=== PATIENT | female | born 1970 | race Caucasian/White ===

== ENCOUNTER → 2017-12-26 13:11 | Emergency (ER) | payer BC, OTHER ==
--- NOTE | 2017-12-26 14:44 | RAD ---
HISTORY: Swelling of the angle of the left jaw COMPARISONS: None TECHNIQUE: Multiple contiguous axial CT scans were obtained of the neck without intravenous contrast, with coronal and sagittal multiplanar reformations. FINDINGS: The study is limited by the lack of intravenous contrast. This limits evaluation of the solid organs and vasculature. BRAIN AND ORBITS: The visualized brain and orbits are normal. PARANASAL SINUSES: There is near-fluid level within the right maxillary sinus. SALIVARY GLANDS: The parotid glands are prominent but symmetric. There is no appreciable sialolithiasis or salivary ductal dilatation. The semitubular and sublingual glands are unremarkable for technique. There is mild stranding of the saphenous fat inferior to the left carotid gland. NASAL CAVITY/NASOPHARYNX: The nasal cavity and nasopharynx are normal. ORAL CAVITY/OROPHARYNX: The oral cavity and oropharynx are unremarkable. LARYNGEAL APPARATUS/HYPOPHARYNX: The laryngeal apparatus and hypopharynx are normal. UPPER AIRWAY/UPPER ESOPHAGUS: The visualized upper airway and esophagus are normal. LUNG APICES: The lung apices are clear. THYROID GLAND: The thyroid gland is normal. LYMPH NODES: There is no lymphadenopathy by size criteria. VASCULATURE: The vasculature is unremarkable. BONES AND SOFT TISSUES: No bone or soft tissue abnormalities are noted. OTHER: None. IMPRESSION: 1. MODERATE SINUS MUCOSAL INFLAMMATORY DISEASE, WITH AN AIR-FLUID LEVEL IN THE RIGHT MAXILLARY SINUS. IN THE CORRECT CLINICAL SETTING, THIS MAY REPRESENT ACUTE SINUSITIS. 2. THERE IS MILD INFLAMMATORY CHANGE INFERIOR TO THE LEFT PAROTID GLAND WHICH MAY INDICATE PAROTITIS IN THE CORRECT CLINICAL SETTING. THERE IS NO APPRECIABLE SIALOLITHIASIS OR SALIVARY DUCTAL DILATATION. 3. NO SOFT TISSUE MASS TO CORRESPOND TO THE HISTORY OF PALPABLE ABNORMALITY OF THE ANKLE OF THE MANDIBLE. NO LYMPHADENOPATHY BY SIZE CRITERIA. A NEGATIVE REPORT SHOULD NOT PRECLUDE OR DELAY THE EVALUATION OF A CLINICALLY SUSPICIOUS PALPABLE ABNORMALITY
--- NOTE | 2017-12-26 15:17 | ED ---
Siddhartha Sen Jennifer, scribed for Seb Orellana MD on 12/26/17 at 1344 . Throat Pain/Nasal Congestion - HPI Summary HPI Summary: The patient is a 47 y/o F who presents with left ear swelling and soreness that began at 12:30 today. The patient states she was eating when she heard a crackle in her left ear. She complains that it hurts to chew, its tender to touch, the back of her left tongue hurts, and her throat hurts. She states it felt like a muscle spasm. The patient denies dental pain and hotness. She adds that she has had a head cold and her ears have felt full for the past week. - History of Current Complaint Chief Complaint: EDGeneral Time Seen by Provider: 12/26/17 13:33 Hx Obtained From: Patient Onset/Duration: Sudden Onset, Lasting Hours - about one hour ago, Still Present Severity: Mild Cough: None - Allergies/Home Medications Allergies/Adverse Reactions: Allergies Allergy/AdvReac Type Severity Reaction Status Date / Time acetaminophen [From Vicodin] Allergy See Comment Verified 12/26/17 13:17 hydrocodone [From Vicodin] Allergy See Comment Verified 12/26/17 13:17 morphine Allergy Rash Verified 12/26/17 13:17 Penicillins Allergy Rash Verified 12/26/17 13:17 Home Medications: Home Medications ALPRAZolam TAB* [Xanax TAB*] 0.25 mg PO TID PRN 12/26/17 [History Confirmed ] Cetirizine* [ZyrTEC 10 MG TAB*] 10 mg PO DAILY 12/26/17 [History Confirmed 12/26] DULoxetine CAP* [Cymbalta CAP*] 60 mg PO BID 12/26/17 [History Confirmed ] Esomeprazole(NF) [NEXium(NF)] 20 mg PO DAILY 12/26/17 [History Confirmed ] Estradiol/Levonorgestrel [Climara Pro Patch] 1 patch TRANSDERM WEEKLY 12/26/17 [ History Confirmed 12/26/17] Exenatide VIAL (NF) [Bydureon (NF)] 2 mg SUBCUT WEEKLY 12/26/17 [History Confirmed 12/26/17] Flaxseed Oil [Flaxseed Oil] 2,400 mg PO DAILY 12/26/17 [History Confirmed ] PMH/Surg Hx/FS Hx/Imm Hx Endocrine/Hematology History: Reports: Hx Diabetes - TYPE II ON ORAL MEDICATION FOR Denies: Hx Bone Marrow Disease, Hx Sickle Cell Disease, Hx Anemia GI History: Reports: Hx Gastroesophageal Reflux Disease, Hx Hiatal Hernia Comment Only: Other GI Disorders - HIATAL HERNIA History: Denies: Hx Renal Disease Sensory History: Denies: Hx Contacts or Glasses, Hx Hearing Aid Opthamlomology History: Denies: Hx Contacts or Glasses Psychiatric History: Reports: Hx Anxiety - ON MEDICATION FOR, Hx Depression - ON MEDICATION FOR - Surgical History Surgery Procedure, Year, and Place: 1986 C SECTION [facility]. 1990 BTL [facility]. 1999 HYSTERECTOMY [facility]. 2001 L CARPAL TUNNEL [facility] [place]. 2003 LJ [facility] [place]. 2011 BICEP L ARM REPAIR [facility] [place] Hx Anesthesia Reactions: No Infectious Disease History: No Infectious Disease History: Denies: Traveled Outside the [place] in Last 30 Days - Family History Known Family History: Negative: Renal Disease Family History: Family hx non-contributory - Social History Alcohol Use: None Substance Use Type: Reports: None Smoking Status (MU): Heavy Every Day Tobacco Smoker Amount Used/How Often: 1 PPDX 20 YEARS Review of Systems ENT: Other - hurts to chew, left side of tongue hurts, throat hurts Positive: Ear Ache - swelling and soreness of left ear. Negative: Dental Pain Negative: Abdominal Pain All Other Systems Reviewed And Are Negative: Yes Physical Exam - Summary Physical Exam Summary: General: well-appearing, no pain distress Skin: warm, color reflects adequate perfusion, dry Head: normal Eyes: EOMI, SOPHIE ENT: swelling of angle of the left jaw Neck: supple, nontender Respiratory: CTA, breath sounds present Cardiovascular: RRR Abdomen: soft, nontender Bowel: present Musculoskeletal: normal, strength/ROM intact Neurological: sensory/motor intact, A&O x3 Psychological: affect/mood appropriate Triage Information Reviewed: Yes Vital Signs On Initial Exam: Initial Vitals Temp Pulse Resp BP Pulse Ox 98.1 F 121 20 137/78 97 12/26/17 13:17 12/26/17 13:17 12/26/17 13:17 12/26/17 13:17 12/26/17 13:17 Vital Signs Reviewed: Yes Diagnostics - Vital Signs Vital Signs Temp Pulse Resp BP Pulse Ox 12/26/17 13:17 98.1 F 121 20 137/78 97 - Laboratory Lab Statement: Any lab studies that have been ordered have been reviewed, and results considered in the medical decision making process. - CT Neck CT CT Interpretation: Positive (See Comments) - 1. MODERATE SINUS MUCOSAL INFLAMMATORY DISEASE, WITH AN AIR-FLUID LEVEL IN THE RIGHT MAXILLARY SINUS. IN THE CORRECT CLINICAL SETTING, THIS MAY REPRESENT ACUTE SINUSITIS. 2. THERE IS MILD INFLAMMATORY CHANGE INFERIOR TO THE LEFT PAROTID GLAND WHICH MAY INDICATE PAROTITIS IN THE CORRECT CLINICAL SETTING. THERE IS NO APPRECIABLE SIALOLITHIASIS OR SALIVARY DUCTAL DILATATION. 3. NO SOFT TISSUE MASS TO CORRESPOND TO THE HISTORY OF PALPABLE ABNORMALITY OF THE ANKLE OF THE MANDIBLE. NO LYMPHADENOPATHY BY SIZE CRITERIA. A NEGATIVE REPORT SHOULD NOT PRECLUDE OR DELAY THE EVALUATION OF A CLINICALLY SUSPICIOUS PALPABLE ABNORMALITY. Dr. Orellana has reviewed this report. CT Interpretation Completed By: Radiologist EENT Course/Dx - Course Course Of Treatment: DISCUSSED RESULTS WITH THE PATIENT. F/U PMD; RETURN IF WORSE. - Diagnoses Provider Diagnoses: Parotitis, Sinusitis Discharge - Sign-Out/Discharge Documenting (check all that apply): Discharge/Admit/Transfer - Discharge Plan Condition: Stable Disposition: HOME Prescriptions: Levofloxacin TAB* [Levaquin TAB*] 500 mg PO DAILY #10 tab Patient Education Materials: Sialoadenitis (ED), Sinusitis (ED) Referrals: Stevie Isaac DO [Primary Care Provider] - Additional Instructions: FOLLOW UP WITH YOUR DOCTOR. RETURN TO THE EMERGENCY DEPARTMENT FOR ANY WORSENING OF YOUR CONDITION OR QUESTIONS OR CONCERNS. - Billing Disposition and Condition Condition: STABLE Disposition: HOME The documentation as recorded by the Siddhartha steward Jennifer accurately reflects the service I personally performed and the decisions made by me, Seb Orellana MD.
[2017-12-26 15:32] VITALS: BP 139/86
== END | disposition home or self-care (01) ==
LOC: ED 13:11
DX: K11.20 Sialoadenitis, unspecified (principal); J32.9 Chronic sinusitis, unspecified; E11.9 Type 2 diabetes mellitus without complications; Z79.84 Long term (current) use of oral hypoglycemic drugs; K21.9 Gastro-esophageal reflux disease without esophagitis; K44.9 Diaphragmatic hernia without obstruction or gangrene; F41.9 Anxiety disorder, unspecified; F32.9 Major depressive disorder, single episode, unspecified; Z88.6 Allergy status to analgesic agent; Z88.5 Allergy status to narcotic agent; Z88.0 Allergy status to penicillin; F17.200 Nicotine dependence, unspecified, uncomplicated
CPT/HCPCS: 70490; 99282

== ENCOUNTER 2018-11-23 21:06 | Observation (INO) | payer BC, OTHER ==
--- NOTE | 2018-11-23 21:47 | ED ---
HPI Chest Pain - HPI Summary HPI Summary: This patient is a 48 year old female presenting to [facility] with a chief complaint of constant chest pain since 2 days ago. She describes the pain as a pressure radiating to her right jaw. She also reports palpitations since 2 days ago, shortness of breath since earlier today, and nausea. She rates her pain 7/10 in severity. The patient is a smoker and has a FHx of cardiac problems. - History of Current Complaint Chief Complaint: EDChestPainROMI Time Seen by Provider: 11/23/18 21:42 Hx Obtained From: Patient Onset/Duration: Started Days Ago Timing: Constant Initial Severity: Moderate Current Severity: Moderate Pain Intensity: 7 Pain Scale Used: 0-10 Numeric Chest Pain Radiates To:: Jaw Character: Dyspnea at Rest, Pressure/Squeezing Associated Signs and Symptoms: Positive: Chest Pain - Allergy/Home Medications Allergies/Adverse Reactions: Allergies Allergy/AdvReac Type Severity Reaction Status Date / Time acetaminophen [From Vicodin] Allergy See Comment Verified 11/23/18 21:14 hydrocodone [From Vicodin] Allergy See Comment Verified 11/23/18 21:14 morphine Allergy Rash Verified 11/23/18 21:14 Penicillins Allergy Rash Verified 11/23/18 21:14 Steowmq-Zqf-Dla Reductase Allergy Pain Verified 11/23/18 21:14 Inhibitor Home Medications: Home Medications Dulaglutide [Trulicity] 0.75 mg SUBCUT WEEKLY 11/23/18 [History Confirmed ] Estradiol 0.025 MG PATCH (NF) 1 patch TRANSDERM WEEKLY 11/23/18 [History Confirmed 11/23/18] Furosemide TAB* [Lasix TAB*] 40 mg PO DAILY 11/23/18 [History Confirmed 11/23/18 ] Magnesium Oxide TAB* [MagOx 400 TAB*] 400 mg PO DAILY 11/23/18 [History Confirmed 11/23/18] Multivitamin [Multivitamins] 1 tab PO DAILY 11/23/18 [History Confirmed 11/23/18 ] Progesterone CAP (NF) [Prometrium (NF)] 200 mg PO DAILY 11/23/18 [History Confirmed 11/23/18] Ubidecarenone [Co Q-10] 200 mg PO DAILY 11/23/18 [History Confirmed 11/23/18] Vitamin B Complex [Super B-50 Complex] 1 cap PO DAILY 11/23/18 [History Confirmed 11/23/18] PMH/Surg Hx/FS Hx/Imm Hx Endocrine/Hematology History: Reports: Hx Diabetes - TYPE II ON ORAL MEDICATION FOR Denies: Hx Bone Marrow Disease, Hx Sickle Cell Disease, Hx Anemia GI History: Reports: Hx Gastroesophageal Reflux Disease, Hx Hiatal Hernia Comment Only: Other GI Disorders - HIATAL HERNIA History: Denies: Hx Renal Disease Sensory History: Denies: Hx Contacts or Glasses, Hx Hearing Aid Opthamlomology History: Denies: Hx Contacts or Glasses Psychiatric History: Reports: Hx Anxiety - ON MEDICATION FOR, Hx Depression - ON MEDICATION FOR - Surgical History Surgery Procedure, Year, and Place: 1986 C SECTION [facility]. 1990 BTL [facility]. 1999 HYSTERECTOMY [facility]. [place] [facility] [place] [facility] [place]ICEP L [place] [facility] [place] Anesthesia Reactions: No Infectious Disease History: Yes Infectious Disease History: Denies: Traveled Outside the [place] in Last 30 Days - Family History Known Family History: Positive: Cardiac Disease Negative: Renal Disease Family History: Family hx non-contributory - Social History Alcohol Use: None Substance Use Type: Reports: None Smoking Status (MU): Heavy Every Day Tobacco Smoker Amount Used/How Often: 1 PPDX 20 YEARS Review of Systems Positive: Palpitations, Chest Pain Positive: Shortness Of Breath Positive: Nausea All Other Systems Reviewed And Are Negative: Yes Physical Exam - Summary Physical Exam Summary: VITAL SIGNS: Reviewed. GENERAL: Patient is a well-developed and nourished FEMALE who is lying comfortable in the stretcher. Patient is not in any acute respiratory distress. HEAD AND FACE: No signs of trauma. No ecchymosis, hematomas or skull depressions. No sinus tenderness. EYES: PERRLA, EOMI x 2, No injected conjunctiva, no nystagmus. EARS: Hearing grossly intact. Ear canals and tympanic membranes are within normal limits. MOUTH: Oropharynx within normal limits. NECK: Supple, trachea is midline, no adenopathy, no JVD, no carotid bruit, no c- spine tenderness, neck with full ROM. CHEST: Symmetric, no tenderness at palpation LUNGS: Clear to auscultation bilaterally. No wheezing or crackles. CVS: Regular rate and rhythm, S1 and S2 present, no murmurs or gallops appreciated. ABDOMEN: Soft, non-tender. No signs of distention. No rebound no guarding, and no masses palpated. Bowel sounds are normal. EXTREMITIES: FROM in all major joints, no edema, no cyanosis or clubbing. NEURO: Alert and oriented x 3. No acute neurological deficits. Speech is normal and follows commands. SKIN: Dry and warm Triage Information Reviewed: Yes Vital Signs On Initial Exam: Initial Vitals Temp Pulse Resp BP Pulse Ox 97.8 F 103 18 164/105 98 11/23/18 21:11 11/23/18 21:11 11/23/18 21:11 11/23/18 21:11 11/23/18 21:11 Vital Signs Reviewed: Yes Diagnostics - Vital Signs Vital Signs Temp Pulse Resp BP Pulse Ox 11/23/18 21:11 97.8 F 103 18 164/105 98 - Laboratory Result Diagrams: 11/23/18 21:50 11/23/18 21:50 Lab Statement: Any lab studies that have been ordered have been reviewed, and results considered in the medical decision making process. - Radiology CXR Radiology Interpretation Completed By: ED Physician Summary of Radiographic Findings: No acute process. Pending official radiologist report. - EKG 2125 Cardiac Rate: NL EKG Rhythm: Sinus Rhythm - 94 BPM EKG Comparison: No Significant Change Summary of EKG Findings: Q-waves in inferior leads, old. No acute ischemic changes. Chest Pain Course/Dx - Course Course Of Treatment: This patient is a 48 year old female presenting to [facility] with a chief complaint of constant chest pain since 2 days ago. Labs and imaging were unremarkable for cardiopulmonary problems. Care was discussed with Dr. Martinez, hospitalist and he agreed to admit the patient to the hospital. This plan was discussed with the patient and she was agreeable with this plan. - Diagnoses Provider Diagnoses: Chest pain - Provider Notifications Discussed Care Of Patient With: Gurdeep Martinez - Hospitalist Time Discussed With Above Provider: 00:55 Instructed by Provider To: Admit As Inpatient Discharge - Sign-Out/Discharge Documenting (check all that apply): Patient Departure - Admission - Discharge Plan Condition: Stable Disposition: ADMITTED TO [facility] Referrals: Stevie Isaac DO [Primary Care Provider] - - Attestation Statements Document Initiated by Scribe: Yes Documenting Scribe: Gurdeep Martin Provider For Whom Scribe is Documenting (Include Credential): Sheila Bustillos MD Scribe Attestation: Gurdeep Sen, scribed for Sheila Bustillos MD on 11/24/18 at 0103. Status of Scribe Document: Ready
[2018-11-23] MEDS ORDERED: Aspirin 81 mg CHEW TAB* 81 MG TAB.CHEW PO ONE (21:56)
[2018-11-23] MEDS ORDERED: fentaNYL* 50 MCG/ML 2 ML VIAL (100 MCG VIAL) IV SLOW PU ONE (21:57)
[2018-11-23] MEDS ORDERED: Ondansetron INJ* 2 MG/ML VIAL IV ONE (21:57)
[2018-11-23 21:58] LABS: ABS Basophils 0.1 10^3/ul (0-0.2); ABS Eosinophils 0.3 10^3/ul (0-0.6); ABS Lymphocytes 3.9 10^3/ul (1.0-4.8); ABS Monocytes 0.6 10^3/ul (0-0.8); ABS Neutrophils 4.9 10^3/ul (1.5-7.7); ABS Nucleated RBC 0 10^3/ul; Eosinophil % 3.3 %; Hematocrit 42 % (33-41); Hemoglobin 14.1 g/dL (12.0-16.0); Lymphocyte % 39.6 %; Mean Corpuscular HGB Conc 34 g/dL (31-36); Mean Corpuscular Hemoglobin 30 pg (27-31); Mean Corpuscular Volume 88 fL (80-97); Mean Platelet Volume 7.8 fL (7.4-10.4); Nucleated Red Blood Cells % 0.1; Platelet Count 335 10^3/uL (150-450); Red Blood Count 4.74 10^6 /uL (3.70-4.87); Red Cell Distribution Width 13 % (10.5-15); White Blood Count 9.8 10^3/uL (3.5-10.8)
[2018-11-23 22:20] LABS: Albumin 3.9 g/dL (3.2-5.2); Albumin/Globulin Ratio 1.5 (1-3); BUN/Creatinine Ratio 12.5 (8-20); Calcium 9.4 mg/dL (8.6-10.3); EGFR African American 91.9 (>60); EGFR Non-African American 75.9 (>60); Globulin 2.6 g/dL (2-4); Total Bilirubin 0.2 mg/dL (0.2-1.0); Total Protein 6.5 g/dL (6.4-8.9)
[2018-11-23 22:23] LABS: Troponin I 0.01 ng/mL (<0.04)
[2018-11-23 22:30] LABS: Activated Partial Thrombo Time 30.9 seconds (26.0-36.3); INR 0.83 (0.77-1.02)
[2018-11-23 22:35] LABS: Potassium 3.7 mmol/L (3.5-5.0)
[2018-11-24] MEDS ORDERED: Nitroglycerin TAB 0.4 MG* 0.4 MG TAB SL ONE (02:40)
[2018-11-24] MEDS ORDERED: Cetirizine* 10 MG TAB PO PRN (02:42)
[2018-11-24] MEDS ORDERED: ALPRAZolam TAB* 0.25 MG PO PRN (02:42)
[2018-11-24] MEDS ORDERED: Ondansetron INJ* 2 MG/ML VIAL IV PRN (02:43)
[2018-11-24 02:59] LABS: C Reactive Protein 3.15 mg/L (<8.01)
[2018-11-24] MEDS ORDERED: ESTRADIOL 0.025 MG TRANSDERM SCH (03:00)
[2018-11-24] MEDS ORDERED: NFT: Dulaglutide (NF) 0.75 MG/0.5 ML SYRINGE SUBCUT SCH (03:00)
[2018-11-24] MEDS ORDERED: Enoxaparin(*) 40 MG/0.4 ML SYR SUBCUT SCH (03:00)
[2018-11-24 03:48] LABS: Erythrocyte Sed Rate 9 mm/Hr (0-29)
[2018-11-24] MEDS ORDERED: Ibuprofen TAB* 800 MG PO SCH (04:00)
--- NOTE | 2018-11-24 05:40 | PN ---
Progress Note - Progress Note Date of Service: 11/24/18 Note: Addendum to H&P Experienced relief from nitro SL ESR/CRP not elevated and motrin discontinued
--- NOTE | 2018-11-24 08:08 | HP ---
CC: Dr. Isaac * ADMISSION HISTORY AND PHYSICAL: DATE OF ADMISSION: 11/24/18 PRIMARY CARE PROVIDER: Dr. Isaac. HEALTHCARE PROXY: Her daughter and her . CODE STATUS: Full. SOURCE OF INFORMATION: History obtained from interview with the patient and review of past medical records. RELIABILITY: Good. CHIEF COMPLAINT: Chest pain. HISTORY OF PRESENT ILLNESS: This is a 48-year-old female with past medical history of panic disorder, polyneuropathy, remote history of chest pain, status post cath 7 years prior, thought potentially to be spasm per the patient report , who developed chest pain approximately 2 days prior to presentation of left upper sternum described as chest pressure that was constant, with worsening that occurred the day prior to presentation with radiation to the right jaw, associated with nausea and shortness of breath, the shortness of breath described as if she had just been walking up a flight of stairs, for which she presented to the emergency room. In the emergency room, she did experience one episode of lightheadedness after walking to the bathroom. This chest pressure feels similar to that she experiences when she has had a panic attack; however, panic attacks typically last for only an hour and relieve with Xanax and this has been persistent for the last 48 hours with worsening as described above. She had tried Xanax and has been taking it 3 times a day, whereas typically she takes it p.r.n. 1 time a day if needed, with no relief. 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 She has noticed no relief with anything that she has taken except during her ER stay she did receive Zofran and fentanyl. Afterwards, she fell asleep, but had some chest discomfort which is now returning. She notes that she has had sinus congestion that occurred approximately 2 weeks prior after contact with her [id number] who was also sick. There has been no change in her home medications. No fevers , chills, night sweats, diarrhea, GI or symptoms. PAST MEDICAL HISTORY: Includes GERD, hiatal hernia, chronic lower back pain that is currently resolved, depression, type 2 diabetes, polyneuropathy. She had a left shoulder surgery of her labrum, biceps surgery, carpal tunnel release on her left twice, and panic attacks as indicated above. HOME MEDICATIONS: From the patient's list: 1. Vitamin B complex 1 cap daily. 2. Progesterone 200 mg daily. 3. Estradiol 0.025 patch weekly. 4. Cetirizine 10 mg daily as needed. 5. Trulicity 0.75 mg weekly on Mondays. 6. Multivitamin 1 tab daily. 7. Furosemide 40 mg daily. 8. Magnesium oxide 400 mg daily. 9. Duloxetine 50 mg twice a daily. 10. Alprazolam 0.25 mg 2 times a day as needed. 11. CoQ10 200 mg daily. 12. Flaxseed oil 2400 mg daily. 13. Nexium 20 mg daily. ALLERGIES: Include ACETAMINOPHEN, HYDROCODONE, MORPHINE, PENICILLINS, and STATINS. FAMILY HISTORY: Includes CAD and type 2 diabetes. SOCIAL HISTORY: Current tobacco 1 pack per day for 30 years. No alcohol. 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 REVIEW OF SYSTEMS: As per HPI; otherwise, all other systems are negative. PHYSICAL EXAMINATION GENERAL: Interactive, sitting on the edge of the bed, in no apparent distress. VITAL SIGNS: In the emergency room, 120/77, heart rate ranging from 76 to 91, respiratory rate is 15. She is 96% on room air, T-max 97.8. HEENT: Oropharynx is clear. She has moist mucous membranes. Sclerae are anicteric. NECK: No cervical or supraclavicular lymphadenopathy. LUNGS: Clear to auscultation. HEART: She has regular rate and rhythm. No murmurs, rubs, or gallops. ABDOMEN: Soft, nontender, nondistended. EXTREMITIES: Warm and well perfused. No clubbing, cyanosis, or edema. NEUROLOGIC: No apparent anxiety, agitation, or depression. DIAGNOSTIC STUDIES AND LABORATORY DATA: Labs reviewed. Troponin I is 0.01 and 0.00 on second consecutive check. Inflammatory markers are ordered and now pending. EKG: Sinus tachycardia, ventricular rate 94, normal limit axis, inferior infarct with Qs in III and aVF, late R-wave progression, no ST or T-wave changes. Chest x-ray on this author's interpretation, no active cardiopulmonary disease. ASSESSMENT AND PLAN: This is a 48-year-old female with past medical history as indicated above, presenting with chest discomfort for 2 days. 1. Chest pain: Unclear etiology, seems less likely cardiac in the setting of atypical presentation without worsening with 16 hours of work days. The patient has now received nitroglycerin in the emergency room, trial of 0.4 mg sublingual now, evaluate for response. Repeat EKG in the morning. Repeat troponin in the morning as well for third check. Pericarditis with recent viral exposure remains on the differential. Inflammatory markers will help with the diagnosis. We will start Motrin this morning for pain relief, scheduled q.8 hours 800 mg; follow for improvement. I am not sure she will need to stay pending stress test on Sunday. Can make that decision tomorrow depending on repeat troponin, EKG, inflammatory markers, and relief with nitroglycerin and Motrin. Spasm is on the differential as previously was thought 7 to 8 years ago, although has been consistent without exacerbation except for radiation to the right jaw for which she presented to the emergency room. 2. Type 2 diabetes. Continue home medication. 3. Panic disorder. Continue Xanax. This does not appear to panic outside the usual presentation for her disorder has been consistent for 48 hours. 4. Depression. Continue home medication. 5. DVT prophylaxis. Lovenox. [id number]/[facility] #: [id number] [place]
[2018-11-24] MEDS ORDERED: Pantoprazole TAB * 40 MG TAB PO SCH (09:00)
[2018-11-24] MEDS ORDERED: PROGESTERONE 100 MG PO SCH (09:00)
[2018-11-24] MEDS ORDERED: Furosemide TAB* 40 MG PO SCH (09:00)
[2018-11-24] MEDS ORDERED: Magnesium Oxide TAB* 400 MG PO SCH (09:00)
[2018-11-24] MEDS ORDERED: DULoxetine DR CAP* 60 MG CAP.DR PO SCH (09:00)
--- NOTE | 2018-11-24 09:55 | ECHO ---
Patient: ROGE PELLETIER [facility] Rec#: [id number] : 1970 Date: 11/24/2018 Age: 48y Height: 165 cm / 65.0 in Weight: 86 kg / 189.5 lbs Sex: F BSA: 1.93 Room#: 453 Admit Date#: 11/24/2018 Type: Inpatient [facility] Reading: Jose Magaña MD Editor Greeting Card: Bell Herzog RDCS,RDMS CC: Stevie Isaac DO Transthoracic Echocardiogram Indication: CP BP: 101/53 HR: 73 Rhythm: NSR Findings History: Smoker Technical Comments: The study quality is fair. Left Ventricle: The left ventricular chamber size is normal. There is no left ventricular hypertrophy. The estimated ejection fraction is 55-60%. closer to 55%. There is no consistent Doppler evidence of clinically significant diastolic dysfunction. Left Atrium: The left atrial chamber size is normal. Right Ventricle: The right ventricular chamber size and systolic function are within normal limits. Right Atrium: The right atrium is mildly dilated. Aortic Valve: The aortic valve is trileaflet. Systolic excursion of the aortic valve is normal. There is no evidence of aortic regurgitation. There is no evidence of aortic stenosis. Mitral Valve: The mitral valve leaflets are mildly thickened. There is a trace of mitral regurgitation. There is no evidence of mitral stenosis. Tricuspid Valve: The tricuspid valve leaflets are normal. There is trace tricuspid regurgitation. Unable to estimate the right ventricular systolic pressure. Pulmonic Valve: The pulmonic valve appears normal. There is a trace pulmonic regurgitation. Pericardium: There is no significant pericardial effusion. Aorta: The aortic root appears normal. There is no dilatation of the aortic arch. Pulmonary Artery: The main pulmonary artery appears normal. Venous: The inferior vena cava appears normal in size. There is a greater than 50% respiratory change in the inferior vena cava dimension. Summary: There was not any prior study for comparison. All valves are structurally and functionally normal with no hemodynamically significant valve disease. Conclusions The estimated ejection fraction is 55-60%. closer to 55%. No significant valve lesions. Measurements Name Value Normal Range RVIDd (AP) 2D 2.4 cm (0.9 - 2.6) RVDdMajor (2D) 2.1 cm (2.2 - 4.4) RAd ISD 4CH 5.2 cm (3.4 - 4.9) RA (A4C)W 3.1 cm (2.9 - 4.6) IVSd (2D) 0.9 cm (0.6 - 1) LVPWd (2D) 0.9 cm (0.6 - 1) LVIDd (2D) 4.9 cm (3.6 - 5.4) LVIDs (2D) 0.2 cm - LV FS (2D) 35 % (25 - 45) Aortic Annulus 2.1 cm (1.4 - 2.6) Ao root diameter (2D) 2.7 cm (2.1 - 3.5) Ascending Ao 2.6 cm (2.1 - 3.4) Aortic arch 2.8 cm (1.8 - 3.4) LA dimension (AP) 2D 4 cm (2.3 - 3.8) LAd ISD 4CH 5.6 cm (2.9 - 5.3) LA ISD 4CH W 4.7 cm (2.5 - 4.5) Name Value Normal Range LA ESV BP (A/L) index 28 ml/m2 - Name Value Normal Range MV E-wave Vmax 1.1 m/sec - MV deceleration time 216 msec - MV A-wave Vmax 0.9 m/sec - MV E:A ratio 1.2 ratio - P. vein S-wave Vmax 0.6 m/sec - P. vein D-wave Vmax 0.3 m/sec - P. vein S:D Vmax ratio 1.6 ratio - P. vein A-wave duration 98 msec - LV septal e' Vmax 0.07 m/sec - LV lateral e' Vmax 0.07 m/sec - LV E:e' septal ratio 15 ratio - LV E:e' lateral ratio 15 ratio - Name Value Normal Range AV Vmax 1.5 m/sec - AV VTI 30 cm - AV peak gradient 9 mmHg - AV mean gradient 5 mmHg - LVOT Vmax 1 m/sec - LVOT VTI 19 cm - LVOT peak gradient 4 mmHg - LVOT mean gradient 2 mmHg - CHARMAINE Vmax 0.8 m/sec - Name Value Normal Range RAP 8 mmHg - IVC diameter 1.8 cm - Name Value Normal Range PV Vmax 0.8 m/sec - PV peak gradient 2.6 mmHg -
[2018-11-24 12:04] VITALS: BP 120/71
--- NOTE | 2018-11-24 19:24 | DS ---
CC: Dr. Stevie Isaac * DISCHARGE SUMMARY: DATE OF ADMISSION: 11/24/18 DATE OF DISCHARGE: 11/24/18 PRIMARY CARE PROVIDER: Dr. Stevie Isaac. ATTENDING PROVIDER: Dr. Bettina Ehceverria * (dictated by Ava Hurtado NP). PRIMARY DIAGNOSIS: Atypical chest pain. SECONDARY DIAGNOSES: 1. Diabetes mellitus type 2. 2. Depression. 3. Anxiety. 4. Gastroesophageal reflux disease. 5. Hiatal hernia. STUDIES WHILE IN THE HOSPITAL: 1. EKG on 11/23/18 shows normal sinus rhythm with a rate of 94, QTc 458, Q waves present in inferior leads. This is consistent with a previous EKG on file from 2011. Minimal ST elevation also noted in inferior leads and also present on EKG from 2011. 2. Chest x-ray on 11/23/18 reads as findings suggestive of COPD. No evidence for acute findings. 3. EKG on 11/24/18 shows normal sinus rhythm with a rate of 78, QTc 453, Q waves and minimal ST elevation remained unchanged from previous EKG. 4. Transthoracic echocardiogram on 11/24/18 reads as there was not any prior study for comparison. All valves are structurally and functionally normal with no hemodynamically significant valve disease. The estimated ejection fraction is 55% to 60%, closer to 55%. No significant valve lesions. HISTORY OF PRESENT ILLNESS AND HOSPITAL COURSE: Ms. Cam is a 48-year-old female with past medical history of GERD, large hiatal hernia, type 2 diabetes, depression and anxiety, who presented to the emergency room on 11/23/18 with complaints of chest pain. Please see the history and physical by Dr. Martinez for a complete summary of the events leading up to this hospitalization. In short, the patient had experienced chest pain in the past and at that time the chest pain was thought to be secondary to spasms. The day the patient presented to the emergency room, she reported 2 days of left upper sternal pressure radiating to her right jaw that had associated nausea and shortness of breath. She reported that it felt similar to pain she has had in the past while experiencing a panic attack, though her panic attacks had never lasted that long. In the emergency room, she was noted to have a negative troponin and an EKG as noted above. Because of the concern for chest pain, the patient was admitted by the hospitalist service. The patient had an uneventful night. Her chest pain resolved after a dose of nitro. There was concern for possible pericarditis, though ESR and CRP were normal and that therefore was ruled out. The patient had 3 additional negative troponins and another EKG this morning without any changes. Vital signs remained stable and there were no arrhythmias noted on telemetry. On exam this morning, the patient reports feeling well. She does report feeling tired and has not been out of bed yet today. She reported that the chest pain had not recurred and that she has experienced significant anxiety in the past. She was unsure if she should take more than 1 of her Xanax if she experiences a similar episode in the future. At this point, the etiology of her chest pain is unclear , though a cardiac source is unlikely due to her negative troponins and normal EKG. Again, her echo was completely benign and there was no evidence of pericarditis. I think that this chest pain may likely be secondary to anxiety and panic attacks or potentially to GERD. Spasm does remain on the differential as she was thought to have that in the past. On exam, the patient' s heart rate is regular without any murmurs, rubs, or gallops. Lung sounds are clear to auscultation. Exam is otherwise benign. The patient did get up and ambulate around the unit approximately 3 times and reported feeling slightly groggy, but otherwise at her baseline. The patient is agreeable to pursuing an outpatient stress test. Ms. Cam is stable for discharge today. Vital signs are as follows: Temp 98.6, heart rate 74, respiratory rate 16, oxygen saturation 94% on room air, blood pressure 120/71. DISCHARGE MEDICATIONS: Continued medications: 1. Alprazolam 0.25 mg p.o. t.i.d. p.r.n. anxiety. 2. Cetirizine 10 mg p.o. daily p.r.n. allergy symptoms. 3. Trulicity 0.75 mg subcu weekly. 4. Duloxetine 60 mg p.o. b.i.d. 5. Esomeprazole 20 mg p.o. daily. 6. Estradiol 0.025 mg patch 1 patch transdermal weekly. 7. Flaxseed oil 2400 mg p.o. daily. 8. Furosemide 40 mg p.o. daily. 9. Magnesium oxide 400 mg p.o. daily. 10. Multivitamin 1 tab p.o. daily. 11. Progesterone 200 mg p.o. daily. 12. CoQ10 200 mg p.o. daily. 13. Vitamin B complex 1 cap p.o. daily. DISCHARGE PLAN: Ms. Cam will be discharged home. Activity will be as tolerated. Diet will be regular as tolerated. I have not made any changes to her medications, though I did advise the patient that if she experiences a significant panic attack in the future or similar chest pain that is not resolved with oneXanax, she may try taking a second Xanax, though should not take any more than two. I have advised her that she should discuss her Xanax dosing further with her primary care provider to determine if she requires any changes in dosage. I do think that the patient would benefit from an outpatient stress test and I would recommend that she undergo an outpatient stress test in the near future. She will need to discuss this with her PCP as well. She should follow up with her primary care provider in 4 to 7 days. The patient should return to the emergency room or nearest hospital for any worsening of symptoms, shortness of breath, lightheadedness, dizziness, chest discomfort, high fever, chills, night sweats, loss of consciousness, or any other worrisome signs or symptoms. DISCHARGE CONDITION: Stable. DISCHARGE DISPOSITION: Home. This is a summarized report of a complex medical history and hospital stay. For further details, please see the entire medical record. TIME SPENT: Approximately 45 minutes was spent on this discharge. AVA HURTADO NP [id number]/[facility] #: [id number] [place]
== END 2018-11-24 14:30 | disposition home or self-care (01) ==
LOC: ED 21:06 → MEDTELE 11-24 02:43
PROVIDERS: ADMIT Internal Medicine; ATTEND Internal Medicine
DX: R07.89 Other chest pain (principal); E11.9 Type 2 diabetes mellitus without complications; F32.9 Major depressive disorder, single episode, unspecified; F41.9 Anxiety disorder, unspecified; R06.00 Dyspnea, unspecified; K21.9 Gastro-esophageal reflux disease without esophagitis; K44.9 Diaphragmatic hernia without obstruction or gangrene; Z88.0 Allergy status to penicillin; F17.210 Nicotine dependence, cigarettes, uncomplicated; R00.2 Palpitations
CPT/HCPCS: 36415; 71046; 80053; 83605; 84484; 85025; 85610; 85652; 85730; 86140; 93005; 93306; 96372; 96374; 96375; 96376; 99284; A9270-GY; G0378; J1650; J2405; J3010

== ENCOUNTER 2020-04-14 17:38 | Inpatient (IN) ==
[2020-04-14 18:47] LABS: ABS Basophils 0.2 10^3/ul (0-0.2); ABS Eosinophils 0.2 10^3/ul (0-0.6); ABS Lymphocytes 4.2 10^3/ul (1.0-4.8); ABS Monocytes 0.7 10^3/ul (0-0.8); ABS Neutrophils 6.4 10^3/ul (1.5-7.7); Eosinophil % 1.5 %; Hematocrit 41 % (35-47); Hemoglobin 14.3 g/dL (12.0-16.0); Lymphocyte % 36.3 %; Mean Corpuscular HGB Conc 35 g/dL (31-36); Mean Corpuscular Hemoglobin 30 pg (27-31); Mean Corpuscular Volume 87 fL (80-97); Mean Platelet Volume 8.4 fL (7.4-10.4); Platelet Count 321 10^3/uL (150-450); Red Blood Count 4.69 10^6 /uL (3.70-4.87); Red Cell Distribution Width 14 % (10-15); White Blood Count 11.7 10^3/uL (3.5-10.8)
[2020-04-14 18:56] LABS: Activated Partial Thrombo Time 28.9 seconds (26.0-38.0); INR 1.01 (0.82-1.09)
[2020-04-14 19:03] LABS: Albumin/Globulin Ratio 1.6 (1-3); C Reactive Protein 4.32 mg/L (<8.01); Calcium 9.7 mg/dL (8.6-10.3); EGFR African American 79.9 (>60); Globulin 2.5 g/dL (2-4); Magnesium 1.8 mg/dL (1.9-2.7); Total Bilirubin 0.3 mg/dL (0.2-1.0); Total Protein 6.5 g/dL (6.4-8.9)
[2020-04-14 19:16] LABS: Potassium 1.9 mmol/L (3.5-5.0)
[2020-04-14] MEDS ORDERED: Iodixanol (CONTRAST) 320 MG/ML 100 ML SDV IV ONE (19:23)
[2020-04-14] MEDS: KCL 10 MEQ/50 ML IVPREMIX 10 MEQ/50 ML BAG IV SCH ×3 (19:34→22:14)
[2020-04-14 20:15] LABS: Urine Appearance Clear; Urine Bilirubin Negative (Negative); Urine Blood Negative (Negative); Urine Color Yellow; Urine Glucose Negative (Negative); Urine Ketones Negative (Negative); Urine Nitrite Negative (Negative); Urine Protein Negative (Negative); Urine Specific Gravity 1.012 (1.010-1.030); Urine Urobilinogen Negative (Negative)
[2020-04-14 20:35] LABS: Urine Benzodiazepine Screen None Detected (None Detect); Urine Cannabinoids Screen None Detected (None Detect); Urine Opiates Screen None Detected (None Detect)
[2020-04-14] MEDS ORDERED: Ondansetron 4 mg VIAL 2 MG/ML 2 ml VIAL IV PRN (22:01)
[2020-04-14] MEDS ORDERED: Dextrose 50% Syringe 50 ml 25 GM/50 ML SYRINGE IV PUSH PRN (22:16)
[2020-04-14 22:43] LABS: TSH Ultra Thyroid Stim Horm 1.76 mcIU/mL (0.34-5.60)
[2020-04-14] MEDS: Potassium Chloride LIQUID 20 MEQ/15 ML LIQUID PO ONE (23:40)
[2020-04-14] MEDS: DULoxetine DR 60 mg CAP PO SCH (23:40)
[2020-04-15] MEDS: Rosuvastatin 10 mg TAB (NF) PO SCH ×2 (00:01→20:05)
[2020-04-15] MEDS: KCL 10 MEQ/50 ML IVPREMIX 10 MEQ/50 ML BAG IV SCH ×4 (00:26→10:10)
[2020-04-15] MEDS ORDERED: Nicotine Lozenge mini 4 MG LOZNG.MINI MT PRN (00:38)
[2020-04-15] MEDS ORDERED: Potassium Chlor 20 meq TAB.ER PO ONE (00:39)
[2020-04-15 00:43] LABS: Troponin I 0.01 ng/mL (<0.03)
[2020-04-15] MEDS: Potassium Chloride LIQUID 20 MEQ/15 ML LIQUID PO ONE (00:55)
[2020-04-15] MEDS: Enoxaparin 40 MG/0.4 ML SYR SUBCUT SCH ×2 (00:58→21:55)
[2020-04-15] MEDS: NS 0.9% 1000 ml BAG 1,000 ML IV ONE ×2 (04:52→05:13)
[2020-04-15 05:01] LABS: Hematocrit 38 % (35-47); Hemoglobin 13.6 g/dL (12.0-16.0); Mean Corpuscular HGB Conc 36 g/dL (31-36); Mean Corpuscular Hemoglobin 31 pg (27-31); Mean Corpuscular Volume 87 fL (80-97); Platelet Count 282 10^3/uL (150-450); Red Cell Distribution Width 14 % (10-15); White Blood Count 8.7 10^3/uL (3.5-10.8)
[2020-04-15] MEDS ORDERED: NS 0.9% 250 ml 250 ML IV ONE (05:07)
[2020-04-15 05:12] LABS: Calcium 9.4 mg/dL (8.6-10.3)
[2020-04-15 05:16] LABS: Potassium 2.4 mmol/L (3.5-5.0)
[2020-04-15 05:17] LABS: EGFR Non-African American 62.8 (>60)
[2020-04-15] MEDS: Nicotine PATCH 21 MG/24 HR PATCH TRANSDERM SCH (07:57)
[2020-04-15] MEDS: DULoxetine DR 60 mg CAP PO SCH ×2 (07:59→20:05)
[2020-04-15 08:56] LABS: ABS Basophils 0.1 10^3/ul (0-0.2); ABS Eosinophils 0.2 10^3/ul (0-0.6); ABS Lymphocytes 3.4 10^3/ul (1.0-4.8); ABS Monocytes 0.5 10^3/ul (0-0.8); ABS Neutrophils 4.5 10^3/ul (1.5-7.7); Eosinophil % 2.6 %; Lymphocyte % 38.8 %
[2020-04-15] MEDS ORDERED: Pneumococcal Vac 23-Polyvalent IM ONE (09:00)
[2020-04-15 09:23] LABS: C Reactive Protein 4.31 mg/L (<8.01)
[2020-04-15] MEDS ORDERED: ESOMEPRAZOLE PO SCH (10:00)
[2020-04-15] MEDS: ICOSAPENT ETHYL 1 GM PO SCH ×2 (10:10→22:30)
[2020-04-15 11:45] LABS: Erythrocyte Sed Rate 9 mm/Hr (0-29)
[2020-04-15 15:18] LABS: BUN/Creatinine Ratio 20.8 (8-20); EGFR African American 103.3 (>60); EGFR Non-African American 85.4 (>60); Potassium 2.9 mmol/L (3.5-5.0)
[2020-04-15] MEDS ORDERED: KCL 20 MEQ/100 ML IVPREMIX 20 MEQ/100 ML BAG IV SCH (16:00)
[2020-04-15 16:05] LABS: Magnesium 2.2 mg/dL (1.9-2.7)
[2020-04-15] MEDS ORDERED: KCL 20 MEQ/100 ML IVPREMIX 20 MEQ/100 ML BAG ONE (16:34)
[2020-04-15] MEDS: Potassium Chloride LIQUID 20 MEQ/15 ML LIQUID PO SCH (17:04)
[2020-04-15] MEDS: Potassium Chlor 20 meq TAB.ER PO SCH ×2 (17:17→20:05)
[2020-04-15 23:11] LABS: BUN/Creatinine Ratio 19.7 (8-20); Calcium 9.2 mg/dL (8.6-10.3); EGFR African American 114.2 (>60); EGFR Non-African American 94.4 (>60); Potassium 2.8 mmol/L (3.5-5.0)
[2020-04-16] MEDS: Potassium Chlor 20 meq TAB.ER PO SCH ×2 (00:05→07:41)
[2020-04-16 06:13] LABS: BUN/Creatinine Ratio 18.8 (8-20); Calcium 9.2 mg/dL (8.6-10.3); EGFR African American 108.5 (>60); EGFR Non-African American 89.7 (>60); Magnesium 2.2 mg/dL (1.9-2.7); Potassium 3.9 mmol/L (3.5-5.0)
[2020-04-16] MEDS: Nicotine PATCH 21 MG/24 HR PATCH TRANSDERM SCH (07:40)
[2020-04-16] MEDS: DULoxetine DR 60 mg CAP PO SCH (07:40)
[2020-04-16] MEDS: ICOSAPENT ETHYL 1 GM PO SCH (07:41)
[2020-04-16 08:36] VITALS: BP 102/59
== END 2020-04-16 11:42 | disposition home or self-care (01) | DRG 45 ==
LOC: ED 17:38 → MEDTELE 22:01
PROVIDERS: ADMIT Internal Medicine; ATTEND Internal Medicine

== ENCOUNTER 2020-06-30 15:40 | Observation (INO) ==
[2020-06-30] MEDS ORDERED: NS 0.9% 1000 ml BAG 1,000 ML IV ONE (15:55)
[2020-06-30 16:28] LABS: ABS Basophils 0.1 10^3/ul (0-0.2); ABS Eosinophils 0.1 10^3/ul (0-0.6); ABS Lymphocytes 4.1 10^3/ul (1.0-4.8); ABS Monocytes 0.5 10^3/ul (0-0.8); ABS Neutrophils 7.4 10^3/ul (1.5-7.7); Eosinophil % 0.9 %; Hematocrit 44 % (35-47); Hemoglobin 15.4 g/dL (12.0-16.0); Lymphocyte % 33.5 %; Mean Corpuscular HGB Conc 35 g/dL (31-36); Mean Corpuscular Hemoglobin 31 pg (27-31); Mean Corpuscular Volume 87 fL (80-97); Mean Platelet Volume 8.6 fL (7.4-10.4); Platelet Count 324 10^3/uL (150-450); Red Blood Count 5.04 10^6 /uL (3.70-4.87); Red Cell Distribution Width 13 % (10-15); White Blood Count 12.3 10^3/uL (3.5-10.8)
[2020-06-30 16:37] LABS: INR 1.01 (0.82-1.09)
[2020-06-30 17:03] LABS: Albumin 4.3 g/dL (3.2-5.2); Albumin/Globulin Ratio 1.4 (1-3); BUN/Creatinine Ratio 20.4 (8-20); EGFR African American 68.4 (>60); EGFR Non-African American 56.5 (>60); HDL Cholesterol 55.5 mg/dL; Total Bilirubin 0.4 mg/dL (0.2-1.0); Total Protein 7.3 g/dL (6.4-8.9)
[2020-06-30 17:04] LABS: Troponin I 0.01 ng/mL (<0.03)
[2020-06-30] MEDS ORDERED: Potassium Chlor 20 meq TAB.ER PO ONE (17:15)
[2020-06-30 17:33] LABS: Magnesium 2.2 mg/dL (1.9-2.7)
[2020-06-30] MEDS: KCL 10 MEQ/50 ML IVPREMIX 10 MEQ/50 ML BAG IV SCH ×2 (18:13→23:28)
[2020-06-30] MEDS ORDERED: KCL 20 MEQ/100 ML IVPREMIX 20 MEQ/100 ML BAG IV ONE (18:50)
[2020-06-30] MEDS ORDERED: Potassium Chlor 10 meq TAB PO ONE ×2 (18:50→20:12)
[2020-07-01 00:46] LABS: BUN/Creatinine Ratio 23.8 (8-20); Calcium 9.3 mg/dL (8.6-10.3); EGFR African American 91.5 (>60); EGFR Non-African American 75.6 (>60)
[2020-07-01 01:24] LABS: Potassium 2.7 mmol/L (3.5-5.0)
[2020-07-01] MEDS ORDERED: Potassium Chloride LIQUID 20 MEQ/15 ML LIQUID PO ONE (01:55)
[2020-07-01] MEDS: KCL 10 MEQ/50 ML IVPREMIX 10 MEQ/50 ML BAG IV SCH ×3 (04:34→09:15)
[2020-07-01] MEDS: Enoxaparin 40 MG/0.4 ML SYR SUBCUT SCH (05:01)
[2020-07-01] MEDS ORDERED: Potassium Chlor 20 meq TAB.ER PO SCH (05:30)
[2020-07-01] MEDS: Nicotine PATCH 7 MG/24 HR PATCH TRANSDERM SCH ×2 (05:46→08:39)
[2020-07-01] MEDS ORDERED: Dextrose 50% Syringe 50 ml 25 GM/50 ML SYRINGE IV PUSH PRN (06:32)
[2020-07-01] MEDS ORDERED: CMCS:Rosuvastatin 20 mg TAB (NF) PO SCH ×2 (09:00→21:00)
[2020-07-01] MEDS: DULoxetine DR 60 mg CAP PO SCH ×2 (09:51→21:34)
[2020-07-01] MEDS: ESOMEPRAZOLE 20 MG PO SCH (09:52)
[2020-07-01] MEDS: ICOSAPENT ETHYL 1 GM PO SCH ×2 (09:52→18:35)
[2020-07-01 09:57] LABS: Hematocrit 40 % (35-47); Hemoglobin 13.9 g/dL (12.0-16.0); Mean Corpuscular HGB Conc 35 g/dL (31-36); Mean Corpuscular Hemoglobin 30 pg (27-31); Mean Corpuscular Volume 88 fL (80-97); Mean Platelet Volume 8.5 fL (7.4-10.4); Platelet Count 281 10^3/uL (150-450); Red Cell Distribution Width 13 % (10-15); White Blood Count 8.8 10^3/uL (3.5-10.8)
[2020-07-01 10:14] LABS: BUN/Creatinine Ratio 22.4 (8-20); Calcium 9.1 mg/dL (8.6-10.3); EGFR African American 112.3 (>60); EGFR Non-African American 92.8 (>60); Magnesium 2.1 mg/dL (1.9-2.7); Phosphorus 2.2 mg/dL (2.5-5.0)
[2020-07-01 10:18] LABS: Potassium 2.7 mmol/L (3.5-5.0)
[2020-07-01] MEDS ORDERED: Potassium Chlor 20 meq TAB.ER PO ONE ×3 (11:24→22:00)
[2020-07-01] MEDS: Fluticasone NASAL SPRAY 50MCG 16 gm SPRAY BTL INTRANASAL SCH (12:25)
[2020-07-01 12:48] LABS: Urine Appearance Clear; Urine Bilirubin Negative (Negative); Urine Blood Negative (Negative); Urine Color Straw; Urine Glucose 3+(>=500 mg/dL) (Negative); Urine Ketones Negative (Negative); Urine Nitrite Negative (Negative); Urine Protein Negative (Negative); Urine Specific Gravity 1.007 (1.010-1.030); Urine Urobilinogen Negative (Negative)
[2020-07-01 12:59] LABS: TSH Ultra Thyroid Stim Horm 0.82 mcIU/mL (0.34-5.60)
[2020-07-01 15:45] LABS: BUN/Creatinine Ratio 22.9 (8-20); Calcium 9.3 mg/dL (8.6-10.3); EGFR African American 106.7 (>60); EGFR Non-African American 88.2 (>60)
[2020-07-01 16:55] LABS: Potassium 2.7 mmol/L (3.5-5.0)
[2020-07-02 02:16] LABS: BUN/Creatinine Ratio 23.6 (8-20); EGFR African American 103.3 (>60); EGFR Non-African American 85.4 (>60); Magnesium 2.2 mg/dL (1.9-2.7)
[2020-07-02] MEDS ORDERED: KCL 20 MEQ/100 ML IVPREMIX 20 MEQ/100 ML BAG IV ONE (02:18)
[2020-07-02] MEDS ORDERED: Potassium Chlor 20 meq TAB.ER PO ONE ×2 (03:00→08:00)
[2020-07-02 07:31] LABS: BUN/Creatinine Ratio 21.5 (8-20); Calcium 9.1 mg/dL (8.6-10.3); EGFR African American 116.3 (>60); EGFR Non-African American 96.1 (>60); Magnesium 2.2 mg/dL (1.9-2.7); Potassium 3.5 mmol/L (3.5-5.0)
[2020-07-02] MEDS: Enoxaparin 40 MG/0.4 ML SYR SUBCUT SCH (08:14)
[2020-07-02] MEDS: DULoxetine DR 60 mg CAP PO SCH (08:15)
[2020-07-02] MEDS: Nicotine PATCH 7 MG/24 HR PATCH TRANSDERM SCH (08:16)
[2020-07-02] MEDS: ESOMEPRAZOLE 20 MG PO SCH (08:17)
[2020-07-02] MEDS: ICOSAPENT ETHYL 1 GM PO SCH (08:18)
[2020-07-02] MEDS: Fluticasone NASAL SPRAY 50MCG 16 gm SPRAY BTL INTRANASAL SCH (08:21)
[2020-07-02 08:43] VITALS: BP 112/71
[2020-07-04] MEDS ORDERED: Dulaglutide (NF) 0.75 MG/0.5 ML SYRINGE SUBCUT SCH (06:00)
== END 2020-07-02 09:30 | disposition home or self-care (01) ==
LOC: ED 15:40 → MEDTELE 07-01 01:47 → INTOOBSV 07-01 01:47 → MEDTELE 07-01 04:15
PROVIDERS: ADMIT Internal Medicine; ATTEND Pediatrics

== ENCOUNTER 2021-02-18 11:57 | Observation (INO) ==
[2021-02-18] MEDS ORDERED: NS 0.9% 1000 ml BAG 1,000 ML IV ONE (12:28)
[2021-02-18 13:44] LABS: ABS Eosinophils 0.2 10^3/ul (0-0.6); ABS Lymphocytes 3.8 10^3/ul (1.0-4.8); ABS Monocytes 0.7 10^3/ul (0-0.8); ABS Neutrophils 6.2 10^3/ul (1.5-7.7); Eosinophil % 1.5 %; Hematocrit 40 % (35-47); Mean Corpuscular HGB Conc 35 g/dL (31-36); Mean Corpuscular Hemoglobin 30 pg (27-31); Mean Corpuscular Volume 85 fL (80-97); Mean Platelet Volume 9.1 fL (7.4-10.4); Platelet Count 289 10^3/uL (150-450); Red Blood Count 4.73 10^6 /uL (3.70-4.87); Red Cell Distribution Width 13 % (10-15); White Blood Count 10.9 10^3/uL (3.5-10.8)
[2021-02-18 14:02] LABS: Albumin/Globulin Ratio 1.4 (1-3); C Reactive Protein 4.99 mg/L (<8.01); Calcium 9.2 mg/dL (8.6-10.3); EGFR African American 98.2 (>60); EGFR Non-African American 81.1 (>60); Globulin 2.8 g/dL (2-4); Total Bilirubin 0.4 mg/dL (0.2-1.0); Total Protein 6.8 g/dL (6.4-8.9)
[2021-02-18] MEDS ORDERED: Iodixanol (CONTRAST) 320 MG/ML 100 ML SDV IV ONE (14:29)
[2021-02-18 14:45] LABS: Potassium 2.2 mmol/L (3.5-5.0)
[2021-02-18] MEDS ORDERED: Potassium Chlor 20 meq TAB.ER PO ONE (14:50)
[2021-02-18] MEDS: KCL 20 MEQ/100 ML IVPREMIX 20 MEQ/100 ML BAG IV SCH ×2 (15:13→20:02)
[2021-02-18] MEDS: Nicotine PATCH 14 MG/24 HR PATCH TRANSDERM SCH (16:03)
[2021-02-18 16:05] LABS: Phosphorus 2.2 mg/dL (2.5-5.0)
[2021-02-18] MEDS ORDERED: Ondansetron 4 mg VIAL 2 MG/ML 2 ml VIAL IV PRN (18:10)
[2021-02-18] MEDS ORDERED: Dextrose 50% Syringe 50 ml 25 GM/50 ML SYRINGE IV PUSH PRN (19:10)
[2021-02-18] MEDS ORDERED: Enoxaparin 40 MG/0.4 ML SYR SUBCUT SCH (21:00)
[2021-02-18] MEDS: CMCS: Riboflavin (B2) 100 mg TAB(NF) PO SCH (22:17)
[2021-02-18] MEDS: NFT: ICOSAPENT ETHYL 1 GM CAPSULE (NF) PO SCH (22:17)
[2021-02-18] MEDS: Potassium Chlor 20 meq TAB.ER PO SCH (22:17)
[2021-02-18] MEDS: Potassium Acid Phos 500 mg TAB PO ONE (23:58)
[2021-02-19 05:30] LABS: ABS Basophils 0.1 10^3/ul (0-0.2); ABS Eosinophils 0.2 10^3/ul (0-0.6); ABS Lymphocytes 2.7 10^3/ul (1.0-4.8); ABS Monocytes 0.6 10^3/ul (0-0.8); ABS Neutrophils 3.8 10^3/ul (1.5-7.7); Eosinophil % 2.4 %; Hematocrit 40 % (35-47); Hemoglobin 13.7 g/dL (12.0-16.0); Lymphocyte % 37.3 %; Mean Corpuscular HGB Conc 34 g/dL (31-36); Mean Corpuscular Hemoglobin 29 pg (27-31); Mean Corpuscular Volume 87 fL (80-97); Mean Platelet Volume 8.7 fL (7.4-10.4); Nucleated Red Blood Cells % 0.1; Platelet Count 260 10^3/uL (150-450); Red Blood Count 4.65 10^6 /uL (3.70-4.87); Red Cell Distribution Width 13 % (10-15); White Blood Count 7.3 10^3/uL (3.5-10.8)
[2021-02-19 05:52] LABS: Albumin 3.4 g/dL (3.2-5.2); Albumin/Globulin Ratio 1.5 (1-3); Calcium 8.8 mg/dL (8.6-10.3); EGFR African American 120.1 (>60); EGFR Non-African American 99.2 (>60); Globulin 2.3 g/dL (2-4); HDL Cholesterol 43.4 mg/dL; Magnesium 2.1 mg/dL (1.9-2.7); Phosphorus 2.9 mg/dL (2.5-5.0); Total Bilirubin 0.3 mg/dL (0.2-1.0); Total Protein 5.7 g/dL (6.4-8.9)
[2021-02-19] MEDS: Potassium Chlor 20 meq TAB.ER PO SCH (08:42)
[2021-02-19] MEDS: Nicotine PATCH 14 MG/24 HR PATCH TRANSDERM SCH (08:42)
[2021-02-19] MEDS: CMCS: Riboflavin (B2) 100 mg TAB(NF) PO SCH (08:43)
[2021-02-19] MEDS: KCL 20 MEQ/100 ML IVPREMIX 20 MEQ/100 ML BAG IV SCH ×2 (08:56→12:13)
[2021-02-19] MEDS ORDERED: CMCS: Venlafaxine 25 mg TAB (NF) PO SCH (09:00)
[2021-02-19] MEDS ORDERED: Potassium Chlor 20 meq TAB.ER PO SCH (09:00)
[2021-02-19] MEDS: NFT: ICOSAPENT ETHYL 1 GM CAPSULE (NF) PO SCH (10:46)
[2021-02-19] MEDS ORDERED: Potassium Chloride LIQUID 20 MEQ/15 ML LIQUID PO ONE (11:24)
[2021-02-19 14:57] VITALS: BP 119/69
== END 2021-02-19 16:15 | disposition home or self-care (01) ==
LOC: MEDTELE 11:57 → ED 11:57
PROVIDERS: ADMIT Internal Medicine; ATTEND Internal Medicine